=== PATIENT | male | born 1960 | race Caucasian/White ===

== ENCOUNTER 2016-09-09 19:20 | Inpatient (IN) | payer BC, OTHER ==
[~2016-09-09] VITALS: Ht 177.8 cm; Wt 121.7 kg
[2016-09-09 19:56] LABS: Basophils # (auto) 0 uL; Basophils % (auto) 0.4 % (0.0-2.0); Eosinophils # (auto) 0.2 uL; Eosinophils % (auto) 2.3 % (0.0-7.0); Hematocrit 43.5 % (41.0-53.0); Hemoglobin 14.9 g/dL (13.5-17.5); Lymphocytes # (auto) 3.5 uL; Lymphocytes % (auto) 35.7 % (10.0-50.0); Mean Corpuscular Hemoglobin 31.4 pg (28.0-32.0); Mean Corpuscular Hgb Conc. 34.3 g/dL (32.0-36.0); Mean Corpuscular Volume 91.7 fL (80.0-100.0); Mean Platelet Volume 7.7 fL (7.4-10.4); Monocytes # (auto) 0.9 uL; Monocytes % (auto) 9.2 % (0.0-12.0); Neutrophils # (auto) 5.1 uL; Neutrophils % (auto) 52.4 % (37.0-80.0); Platelet Count (auto) 235 10^3/uL (140-450); Red Cell Distribution Width 12.8 % (11.6-16.0); White Blood Cell 9.7 10^3/uL (4.4-10.8)
[2016-09-09 20:24] LABS: B-Type Natriuretic Peptide 4.86 pg/mL (0-100)
[2016-09-09 20:29] LABS: INR 1.03 (0.9-1.15); Partial Thromboplastin Time 25.7 sec (22.64-33.71); Prothrombin Time 10.6 sec (9.37-12.3); Temperature: 22.4 C (20.0-25.0)
[2016-09-09 20:42] LABS: Albumin 3.6 g/dL (3.4-5.0); Alkaline Phosphatase 94 U/L (45-117); Anion Gap 12 (5-15); Aspartate Aminotransferase 17 U/L (15-37); BUN/Creatinine Ratio 19.3; Bilirubin, Total 0.3 mg/dL (0.2-1.0); Blood Urea Nitrogen 16 mg/dL (7-18); Calcium 8.8 mg/dL (8.5-10.1); Carbon Dioxide 24 mmol/L (21-32); Chloride 110 mmol/L (98-107); GFR African American 124 mL/min; GFR Non-African American 102 mL/min; Glucose 118 mg/dL (74-106); Magnesium 2.2 mg/dL (1.6-2.6); Potassium 3.6 mmol/L (3.5-5.1); Sodium 146 mmol/L (136-145)
[2016-09-09] MEDS ORDERED: ONDANSETRON HCL 4 MG/2 ML VIAL ONE (21:45)
[2016-09-09] MEDS ORDERED: SODIUM CHLORIDE 0.9% 1,000 ML IV SCH (21:54)
[2016-09-09] MEDS ORDERED: LACTULOSE 20Gm/30ML SOLN PO PRN (22:00)
[2016-09-09] MEDS: ATORVASTATIN 20 MG TAB PO SCH (22:00)
[2016-09-09] MEDS ORDERED: METOPROLOL TARTRATE 25 MG TAB PO SCH (22:00)
[2016-09-09] MEDS ORDERED: ONDANSETRON HCL 4 MG/2 ML VIAL IV ONE (22:00)
[2016-09-09] MEDS ORDERED: MORPHINE SULF INJ 2 MG/ML SYRINGE 1ML IV ONE (22:00)
[2016-09-09] MEDS ORDERED: NITROGLYCERIN 0.4 MG SL TAB SL PRN (22:00)
[2016-09-09] MEDS ORDERED: MORPHINE SULF INJ 2 MG/ML SYRINGE 1ML IV PRN (22:00)
[2016-09-09] MEDS ORDERED: NITROGLYCERIN 0.2MG/HR TOPICAL PATCH TD ONE (22:15)
[2016-09-09 23:45] VITALS: BP 106/60
[2016-09-09 23:54] VITALS: BP 106/60
[2016-09-10 05:00] VITALS: BP 98/58
[2016-09-10] MEDS ORDERED: ENO40SY SC (06:28)
[2016-09-10] MEDS ORDERED: METO25TA5 PO (06:28)
[2016-09-10] MEDS ORDERED: ASPI-231 PO (06:28)
[2016-09-10] MEDS ORDERED: CLOP75TA28 PO (06:28)
[2016-09-10] MEDS ORDERED: NICO21DI24 TD (06:28)
[2016-09-10] MEDS ORDERED: LISI-646 PO (06:28)
[2016-09-10] MEDS ORDERED: ISO60SRT PO (06:28)
[2016-09-10] MEDS ORDERED: ATOR20TA PO (06:28)
[2016-09-10 06:50] LABS: Cholesterol 141 mg/dL (<200); HDL Cholesterol 33 mg/dL (40-59); LDL Cholesterol 89 mg/dL (<100); Triglycerides 201 mg/dL (<150)
[2016-09-10 09:00] VITALS: BP 93/52
[2016-09-10] MEDS: ISOSORBIDE MONONITRATE 60 MG TAB PO SCH (10:00)
[2016-09-10] MEDS: NITROGLYCERIN 0.2MG/HR TOPICAL PATCH TD SCH (10:00)
[2016-09-10] MEDS ORDERED: LISINOPRIL 20 MG TAB PO SCH (10:00)
[2016-09-10] MEDS ORDERED: ASPirin 81 mg TAB PO SCH (10:00)
[2016-09-10] MEDS: CLOPIDOGREL BISULFATE 75 MG TAB PO SCH (10:24)
[2016-09-10] MEDS: ENOXAPARIN SOD 40 MG/0.4 ML SYRINGE SC SCH (10:24)
[2016-09-10] MEDS: METOPROLOL TARTRATE 25 MG TAB PO SCH ×2 (10:25→21:14)
[2016-09-10] MEDS ORDERED: NICOTINE 14 MG/24HR TOPICAL PATCH TD ONE (12:15)
[2016-09-10 13:00] VITALS: BP 91/63
[2016-09-10 14:28] LABS: INR 1.06 (0.9-1.15); Partial Thromboplastin Time 26.8 sec (22.64-33.71); Prothrombin Time 10.9 sec (9.37-12.3)
[2016-09-10 14:33] LABS: Albumin 3.2 g/dL (3.4-5.0); BUN/Creatinine Ratio 16.3; Calcium 8.2 mg/dL (8.5-10.1); Potassium 3.8 mmol/L (3.5-5.1)
[2016-09-10 14:36] LABS: Bilirubin, Total 0.4 mg/dL (0.2-1.0); Total Protein 6.2 g/dL (6.4-8.2)
[2016-09-10 16:47] VITALS: BP 92/58
[2016-09-10] MEDS ORDERED: WARFARIN SODIUM 10 MG TAB PO ONE (17:00)
[2016-09-10] MEDS ORDERED: LORazepam 2MG/ML-1ML VIAL IV PRN (17:45)
[2016-09-10] MEDS: ATORVASTATIN 20 MG TAB PO SCH (21:14)
[2016-09-10 22:00] VITALS: BP 98/61
[2016-09-11 05:00] VITALS: BP 110/68
[2016-09-11 06:53] LABS: INR 1.08 (0.9-1.15); Partial Thromboplastin Time 27.3 sec (22.64-33.71); Prothrombin Time 11.1 sec (9.37-12.3)
[2016-09-11 07:10] LABS: Potassium 3.9 mmol/L (3.5-5.1)
[2016-09-11 07:14] LABS: Albumin 3.2 g/dL (3.4-5.0); BUN/Creatinine Ratio 16.1; Calcium 8.2 mg/dL (8.5-10.1)
[2016-09-11 07:18] LABS: Bilirubin, Total 0.3 mg/dL (0.2-1.0); Total Protein 6.5 g/dL (6.4-8.2)
[2016-09-11 07:29] VITALS: BP 105/69
[2016-09-11 08:00] VITALS: BP 105/69
[2016-09-11] MEDS ORDERED: LISINOPRIL 20 MG TAB PO SCH (10:00)
[2016-09-11] MEDS: NITROGLYCERIN 0.2MG/HR TOPICAL PATCH TD SCH (10:00)
[2016-09-11] MEDS ORDERED: NICOTINE 14 MG/24HR TOPICAL PATCH TD SCH (10:00)
[2016-09-11] MEDS: CLOPIDOGREL BISULFATE 75 MG TAB PO SCH (10:34)
[2016-09-11] MEDS: METOPROLOL TARTRATE 25 MG TAB PO SCH (10:35)
[2016-09-11] MEDS: ENOXAPARIN SOD 40 MG/0.4 ML SYRINGE SC SCH (10:39)
[2016-09-11] MEDS: ISOSORBIDE MONONITRATE 60 MG TAB PO SCH (10:39)
[2016-09-11] MEDS ORDERED: POM PO (11:41)
[2016-09-11 12:14] VITALS: BP 121/77
[2016-09-11 13:05] VITALS: BP 121/77
[2016-09-11] MEDS ORDERED: LEVO25TA6 PO (14:25)
[2016-09-11] MEDS ORDERED: WARFARIN SODIUM 10 MG TAB PO ONE (17:00)
[2016-09-11] MEDS ORDERED: RIVAROXABAN 20 MG TAB PO SCH (18:00)
== END 2016-09-11 15:46 | disposition home or self-care (01) | DRG 309 ==
LOC: EDBD 19:20 → ER 19:28 → TELE-WESTW 19:29 → TELE 19:29
PROVIDERS: ADMIT Family Medicine; ATTEND Internal Medicine
DX: I48.0 Paroxysmal atrial fibrillation (principal); E87.0 Hyperosmolality and hypernatremia; I25.110 Atherosclerotic heart disease of native coronary artery with unstable angina pectoris; D68.9 Coagulation defect, unspecified; E03.9 Hypothyroidism, unspecified; I10 Essential (primary) hypertension; E78.5 Hyperlipidemia, unspecified; E66.01 Morbid (severe) obesity due to excess calories; F17.210 Nicotine dependence, cigarettes, uncomplicated; Z79.899 Other long term (current) drug therapy; Z95.5 Presence of coronary angioplasty implant and graft; I25.2 Old myocardial infarction; Z82.49 Family history of ischemic heart disease and other diseases of the circulatory system; Z68.38 Body mass index [BMI] 38.0-38.9, adult; Z79.82 Long term (current) use of aspirin
CPT/HCPCS: 36415; 70450; 71010; 80053; 80061; 83735; 83880; 84439; 84443; 84481; 84484; 85025; 85610; 85730; 87081; 93005; 93306; 93886; 96367; 96375; J2405

== ENCOUNTER 2016-09-18 22:14 | Inpatient (IN) | payer BC ==
[~2016-09-18] VITALS: Ht 177.8 cm; Wt 122.8 kg
[~2016-09-18 22:14] MED LIST: ASPI-231 PO; ATOR20TA PO; CLOP75TA28 PO; ISO60SRT PO; LEVO25TA6 PO; LISI-646 PO; METO25TA5 PO; NICO21DI24 TD; POM PO
[2016-09-18] MEDS ORDERED: SODIUM CHLORIDE 0.9% 1,000 ML IVB ONE (22:20)
[2016-09-18] MEDS ORDERED: MORPHINE SULFATE 4 MG/ML SYRG IV ONE (22:30)
[2016-09-18] MEDS ORDERED: ONDANSETRON HCL 4 MG/2 ML VIAL IV ONE (22:30)
[2016-09-18 22:38] LABS: Basophils # (auto) 0.1 uL; Basophils % (auto) 0.6 % (0.0-2.0); Eosinophils # (auto) 0.2 uL; Eosinophils % (auto) 1.7 % (0.0-7.0); Hematocrit 40.7 % (41.0-53.0); Hemoglobin 14.4 g/dL (13.5-17.5); Lymphocytes # (auto) 3.6 uL; Lymphocytes % (auto) 35.6 % (10.0-50.0); Mean Corpuscular Hemoglobin 32.1 pg (28.0-32.0); Mean Corpuscular Hgb Conc. 35.3 g/dL (32.0-36.0); Mean Corpuscular Volume 90.8 fL (80.0-100.0); Mean Platelet Volume 7.8 fL (7.4-10.4); Monocytes # (auto) 0.8 uL; Monocytes % (auto) 7.4 % (0.0-12.0); Neutrophils # (auto) 5.6 uL; Neutrophils % (auto) 54.7 % (37.0-80.0); Platelet Count (auto) 215 10^3/uL (140-450); Red Cell Distribution Width 12.9 % (11.6-16.0); White Blood Cell 10.2 10^3/uL (4.4-10.8)
[2016-09-18 22:56] LABS: Albumin 3.4 g/dL (3.4-5.0); Anion Gap 11 (5-15); Aspartate Aminotransferase 14 U/L (15-37); BUN/Creatinine Ratio 17.1; Blood Urea Nitrogen 14 mg/dL (7-18); Calcium 8.2 mg/dL (8.5-10.1); Carbon Dioxide 24 mmol/L (21-32); Chloride 108 mmol/L (98-107); GFR African American 125 mL/min; GFR Non-African American 104 mL/min; Glucose 145 mg/dL (74-106); Potassium 3.8 mmol/L (3.5-5.1); Sodium 143 mmol/L (136-145)
[2016-09-18 22:58] LABS: INR 1.02 (0.9-1.15); Partial Thromboplastin Time 28.5 sec (22.64-33.71); Prothrombin Time 10.5 sec (9.37-12.3)
[2016-09-18 23:01] LABS: Alkaline Phosphatase 104 U/L (45-117); Bilirubin, Total 0.2 mg/dL (0.2-1.0); Total Protein 6.7 g/dL (6.4-8.2)
[2016-09-18 23:02] LABS: B-Type Natriuretic Peptide 8.29 pg/mL (0-100)
[2016-09-19] MEDS ORDERED: MORPHINE SULF INJ 2 MG/ML SYRINGE 1ML IV PRN (02:00)
[2016-09-19] MEDS ORDERED: HYDROcodone-ACET 5/325MG TAB PO PRN (02:00)
[2016-09-19] MEDS ORDERED: NITROGLYCERIN 0.4 MG SL TAB SL PRN (02:00)
[2016-09-19] MEDS ORDERED: ACETAMINOPHEN 325 MG TAB PO PRN (02:00)
[2016-09-19] MEDS ORDERED: TEMAZEPAM 15 MG CAP PO PRN (02:00)
[2016-09-19] MEDS ORDERED: ONDANSETRON HCL 4 MG/2 ML VIAL IV PRN (02:00)
[2016-09-19 02:47] VITALS: BP 95/59
[2016-09-19 05:00] VITALS: BP 103/64
[2016-09-19] MEDS ORDERED: LEVOTHYROXINE SODIUM 50 MCG TAB PO SCH (07:00)
[2016-09-19 08:00] VITALS: BP 97/54
[2016-09-19] MEDS ORDERED: NICOTINE 21MG/24 HR TOPICAL PATCH TD SCH (10:00)
[2016-09-19] MEDS ORDERED: LISINOPRIL 20 MG TAB PO SCH (10:00)
[2016-09-19] MEDS ORDERED: ISOSORBIDE MONONITRATE 60 MG TAB PO SCH (10:00)
[2016-09-19] MEDS ORDERED: FAMOTIDINE 20 MG TAB PO SCH (10:00)
[2016-09-19] MEDS ORDERED: METOPROLOL TARTRATE 25 MG TAB PO SCH (10:00)
[2016-09-19] MEDS ORDERED: ASPirin 81 mg TAB PO SCH (10:00)
[2016-09-19] MEDS ORDERED: ENOXAPARIN SOD 40 MG/0.4 ML SYRINGE SC SCH (10:00)
[2016-09-19] MEDS ORDERED: CLOPIDOGREL BISULFATE 75 MG TAB PO SCH (10:00)
[2016-09-19 13:00] VITALS: BP 101/66
== END 2016-09-19 14:00 | disposition left against medical advice (07) | DRG 313 ==
LOC: EDBD 22:14 → ER 22:20 → TELE 22:21 → TELE-WESTW 09-19 02:48
PROVIDERS: ADMIT Internal Medicine; ATTEND Internal Medicine
DX: R07.9 Chest pain, unspecified (principal); E78.5 Hyperlipidemia, unspecified; E03.9 Hypothyroidism, unspecified; E66.01 Morbid (severe) obesity due to excess calories; I10 Essential (primary) hypertension; F17.210 Nicotine dependence, cigarettes, uncomplicated; I48.2 Chronic atrial fibrillation; Z82.49 Family history of ischemic heart disease and other diseases of the circulatory system; Z98.61 Coronary angioplasty status; Z68.38 Body mass index [BMI] 38.0-38.9, adult
CPT/HCPCS: 36415; 71010; 80053; 83735; 83880; 84443; 84484; 85025; 85379; 85610; 85730; 87081; 93005; 94761; 96361; 96374; 96375; J2405

== ENCOUNTER 2017-04-17 06:09 | Day surgery (SDC) | payer BC ==
[2017-04-16 16:05] LABS: Basophils # (auto) 0 uL; Basophils % (auto) 0.5 % (0.0-2.0); Eosinophils # (auto) 0.2 uL; Eosinophils % (auto) 2.9 % (0.0-7.0); Hematocrit 42.4 % (41.0-53.0); Hemoglobin 14.8 g/dL (13.5-17.5); Lymphocytes # (auto) 3.5 uL; Mean Corpuscular Hemoglobin 32.1 pg (28.0-32.0); Mean Corpuscular Hgb Conc. 34.9 g/dL (32.0-36.0); Mean Corpuscular Volume 92.1 fL (80.0-100.0); Monocytes # (auto) 0.6 uL; Monocytes % (auto) 8.5 % (0.0-12.0); Neutrophils # (auto) 3.2 uL; Neutrophils % (auto) 42.1 % (37.0-80.0); Nucleated Red Blood Cells % 0.1 %; Platelet Count (auto) 192 10^3/uL (140-450); Red Cell Distribution Width 13.2 % (11.8-14.3); White Blood Cell 7.6 10^3/uL (4.4-10.8)
[2017-04-16 16:11] LABS: Albumin 3.6 g/dL (3.4-5.0); BUN/Creatinine Ratio 23.8; Calcium 9.1 mg/dL (8.5-10.1)
[2017-04-16 16:15] LABS: Bilirubin, Total 0.3 mg/dL (0.2-1.0); Total Protein 7.2 g/dL (6.4-8.2)
[2017-04-16 16:18] LABS: Prothrombin Time 10.9 sec (9.37-12.3)
[~2017-04-17] VITALS: Ht 177.8 cm; Wt 117.0 kg
[~2017-04-17 06:09] MED LIST changes: -ASPI-231 PO; +ASPI81TA27 PO; +HYDR-531 PO; -ISO60SRT PO; -LEVO25TA6 PO; -NICO21DI24 TD; +OMEGCAP28 OR
[2017-04-17] MEDS ORDERED: ceFAZolin 1GM/50ML D5W 50 ML IV ONE (06:27)
[2017-04-17] MEDS ORDERED: LIDOCAINE W/ EPINEPHRINE 1 % INJ 30ML ONE (06:56)
[2017-04-17] MEDS ORDERED: BUPIVACAINE W/ EPINEPH 0.25% INJ 50ML MDV ONE (06:56)
[2017-04-17] MEDS ORDERED: LIDOCAINE 1% HCL (LOCAL ANESTH.) INJ 20ML MDV ONE (06:56)
[2017-04-17] MEDS ORDERED: BUPIVACAINE 0.25% INJ 50ML VIAL ONE (06:56)
[2017-04-17] MEDS ORDERED: fentaNYL CITRATE 100 MCG/2 ML VL ONE (07:27)
[2017-04-17] MEDS ORDERED: MIDAZOLAM HCL 1MG/1ML-2 ML VIAL ONE (07:28)
[2017-04-17] MEDS ORDERED: PROPOFOL 10 MG/ML 20 ML IV ONE (07:31)
[2017-04-17] MEDS ORDERED: ceFAZolin 1GM VL ONE (07:46)
[2017-04-17] MEDS ORDERED: MORPHINE SULF(PF) 0.5MG/ML 10ML VIAL ONE (07:49)
[2017-04-17] MEDS ORDERED: ONDANSETRON HCL 4 MG/2 ML VIAL ONE (08:09)
[2017-04-17] MEDS ORDERED: METOCLOPRAMIDE HCL 5MG/ml INJ 2ml VIAL ONE (08:09)
[2017-04-17] MEDS ORDERED: KETOROLAC TROMETH 30 MG/ML 1ML VIAL ONE (08:09)
[2017-04-17] MEDS ORDERED: fentaNYL CITRATE 100 MCG/2 ML VL IV PRN (08:15)
[2017-04-17] MEDS ORDERED: hydrALAZINE HCL 20 MG/ML VL IV PRN (08:15)
[2017-04-17] MEDS ORDERED: ONDANSETRON HCL 4 MG/2 ML VIAL IV ONE (08:15)
[2017-04-17] MEDS: HYDROmorphone HCL 2 MG/ML VL IV PRN ×4 (08:40→09:13)
[2017-04-17 09:32] VITALS: BP 106/60
== END 2017-04-17 09:50 | disposition home or self-care (01) ==
LOC: SUR 06:09
PROVIDERS: ATTEND Orthopaedic Surgery
DX: M23.221 Derangement of posterior horn of medial meniscus due to old tear or injury, right knee (principal); X58.XXXA Exposure to other specified factors, initial encounter; Y93.89 Activity, other specified; Y92.89 Other specified places as the place of occurrence of the external cause; Y99.8 Other external cause status; M94.261 Chondromalacia, right knee; I20.9 Angina pectoris, unspecified; I25.10 Atherosclerotic heart disease of native coronary artery without angina pectoris; J43.9 Emphysema, unspecified; E66.9 Obesity, unspecified; F32.9 Major depressive disorder, single episode, unspecified; F17.210 Nicotine dependence, cigarettes, uncomplicated
CPT/HCPCS: 29881; 36415; 80053; 85025; 85610; 85730; J0690; J1170; J1885; J2250; J2270; J2405; J2704; J2765; J3010; J2001; J3490

== ENCOUNTER → 2019-11-25 | Day surgery (SDC) | payer BC ==
[2019-11-20 10:17] LABS: Urine Bacteria FEW /hpf (None Seen); Urine Blood TRACE /uL (Negative); Urine Mucus FEW (None Seen); Urine Specific Gravity 1.018 (1.001-1.035); Urine WBC 1 /hpf (0 - 3)
[2019-11-20 10:18] LABS: Basophils # (auto) 0 10 ^3/uL (0-0.2); Basophils % (auto) 0.5 % (0.0-2.0); Eosinophils # (auto) 0.3 10 ^3/uL (0-0.8); Eosinophils % (auto) 2.8 % (0.0-7.0); Hematocrit 47.6 % (41.0-53.0); Hemoglobin 16.3 g/dL (13.5-17.5); Lymphocytes # (auto) 3.6 10 ^3/uL (0.4-5.4); Lymphocytes % (auto) 38.7 % (10.0-50.0); Mean Corpuscular Hemoglobin 31.9 pg (28.0-32.0); Mean Corpuscular Hgb Conc. 34.2 g/dL (32.0-36.0); Mean Corpuscular Volume 93.2 fL (80.0-100.0); Monocytes # (auto) 0.8 10 ^3/uL (0-1.3); Monocytes % (auto) 8.2 % (0.0-12.0); Neutrophils # (auto) 4.7 10 ^3/uL (1.6-8.6); Neutrophils % (auto) 49.8 % (37.0-80.0); Nucleated Red Blood Cells % 0.1 %; Platelet Count (auto) 223 10^3/uL (140-450); Red Blood Cells 5.11 10^6/uL (4.5-5.90); Red Cell Distribution Width 13.4 % (11.8-14.3); White Blood Cell 9.4 10^3/uL (4.4-10.8)
[2019-11-20 10:25] LABS: Albumin 3.6 g/dL (3.4-5.0); Calcium 8.9 mg/dL (8.5-10.1); Potassium 4.2 mmol/L (3.5-5.1)
[2019-11-20 10:27] LABS: BUN/Creatinine Ratio 14.1; Bilirubin, Total 0.5 mg/dL (0.2-1.0); Total Protein 7.6 g/dL (6.4-8.2)
[2019-11-20 10:36] LABS: INR 1.01 (0.9-1.15); Partial Thromboplastin Time 26.7 sec (23.64-32.05)
[~2019-11-25] VITALS: Ht 177.8 cm; Wt 122.5 kg
[~2019-11-25] MED LIST changes: +ASPI-404 PO; -ASPI81TA27 PO; -ATOR20TA PO; +BACITRACIN INJ 50000 UNIT VIAL ONE; +BUPIVACAINE 0.25% INJ 50ML VIAL ONE; +BUPIVACAINE W/ EPINEPH 0.25% INJ 50ML MDV ONE; +DOCU-94 PO; +GLYCOPYRROLATE 0.2 MG/ML 1ML VIAL ONE; +HEPARIN SODIUM (PORCINE) 5000 UNITS/ML 1ML VIAL ONE; +HYDR-4833 GT; -HYDR-531 PO; +HYDROmorphone HCL 2 MG/ML VL IV PRN; +LIDOCAINE W/ EPINEPHRINE 1% 20ML VIAL ONE; +MEPERIDINE HCL (25 MG/ML) 1ML VIAL ONE; +METOCLOPRAMIDE HCL 5MG/ml INJ 2ml VIAL IV PRN; +MIDAZOLAM HCL 1MG/1ML-2 ML VIAL ONE; +MORPHINE SULFATE 4 MG/ML SYR/VIAL IV PRN; +NEOSTIGMINE 1 MG/ML INJ (10mg/10ML VIAL) IV ONE; +NEOSTIGMINE 1 MG/ML INJ (10mg/10ML VIAL) ONE; -OMEGCAP28 OR; +ONDANSETRON HCL 4 MG/2 ML VIAL ONE; -POM PO; +PROPOFOL 10 MG/ML 20 ML IV ONE; +ROCURONIUM 10MG/ML 10ML VIAL IV ONE; +SODIUM CHLORIDE LOCK 10 ML ONE; +[UNRECOGNIZED DRUG - CODE] PO; +ceFAZolin 1 GM/50ml D5W BAG /AE IV ONE; +ceFAZolin 1GM/50ML 100 ML IV ONE; +fentaNYL CITRATE 100 MCG/2 ML VL IV PRN; +fentaNYL CITRATE 100 MCG/2 ML VL ONE
[2019-11-25 09:22] VITALS: BP 120/64
== END | disposition home or self-care (01) ==
LOC: SUR 05:58
PROVIDERS: ATTEND Surgery
DX: K42.9 Umbilical hernia without obstruction or gangrene (principal); I11.9 Hypertensive heart disease without heart failure; I25.2 Old myocardial infarction; I25.10 Atherosclerotic heart disease of native coronary artery without angina pectoris; I48.0 Paroxysmal atrial fibrillation; E78.00 Pure hypercholesterolemia, unspecified; E78.5 Hyperlipidemia, unspecified; N40.1 Benign prostatic hyperplasia with lower urinary tract symptoms; M17.11 Unilateral primary osteoarthritis, right knee; F17.210 Nicotine dependence, cigarettes, uncomplicated; E66.9 Obesity, unspecified; Z68.39 Body mass index [BMI] 39.0-39.9, adult; Z95.5 Presence of coronary angioplasty implant and graft; Z98.890 Other specified postprocedural states; Z79.01 Long term (current) use of anticoagulants; Z79.899 Other long term (current) drug therapy
CPT/HCPCS: 36415; 49585; 80053; 81001; 85025; 85610; 85730; J0690; J1644; J2175; J2250; J2405; J2704; J3010; J3490

== ENCOUNTER 2022-04-23 11:14 | Inpatient (IN) | payer BC ==
[2022-04-23] VITALS (7 sets, daily range): BP systolic 120–137; BP diastolic 50–76
[~2022-04-23] VITALS: Ht 177.8 cm; Wt 120.9 kg
[~2022-04-23 11:14] MED LIST changes: -ASPI-404 PO; +ASPI-543 PO; -BACITRACIN INJ 50000 UNIT VIAL ONE; -BUPIVACAINE 0.25% INJ 50ML VIAL ONE; -BUPIVACAINE W/ EPINEPH 0.25% INJ 50ML MDV ONE; -GLYCOPYRROLATE 0.2 MG/ML 1ML VIAL ONE; -HEPARIN SODIUM (PORCINE) 5000 UNITS/ML 1ML VIAL ONE; -HYDROmorphone HCL 2 MG/ML VL IV PRN; -LIDOCAINE W/ EPINEPHRINE 1% 20ML VIAL ONE; -LISI-646 PO; +LISI20TA28 PO; -MEPERIDINE HCL (25 MG/ML) 1ML VIAL ONE; -METOCLOPRAMIDE HCL 5MG/ml INJ 2ml VIAL IV PRN; -MIDAZOLAM HCL 1MG/1ML-2 ML VIAL ONE; -MORPHINE SULFATE 4 MG/ML SYR/VIAL IV PRN; -NEOSTIGMINE 1 MG/ML INJ (10mg/10ML VIAL) IV ONE; -NEOSTIGMINE 1 MG/ML INJ (10mg/10ML VIAL) ONE; -ONDANSETRON HCL 4 MG/2 ML VIAL ONE; -PROPOFOL 10 MG/ML 20 ML IV ONE; -ROCURONIUM 10MG/ML 10ML VIAL IV ONE; -SODIUM CHLORIDE LOCK 10 ML ONE; -ceFAZolin 1 GM/50ml D5W BAG /AE IV ONE; -ceFAZolin 1GM/50ML 100 ML IV ONE; -fentaNYL CITRATE 100 MCG/2 ML VL IV PRN; -fentaNYL CITRATE 100 MCG/2 ML VL ONE
[2022-04-23 12:18] LABS: Basophils # (auto) 0 10 ^3/uL (0-0.2); Basophils % (auto) 0.4 % (0.0-2.0); Eosinophils # (auto) 0.1 10 ^3/uL (0-0.8); Eosinophils % (auto) 1.5 % (0.0-7.0); Hemoglobin 14.4 g/dL (13.5-17.5); Lymphocytes # (auto) 2.6 10 ^3/uL (0.4-5.4); Lymphocytes % (auto) 32.2 % (10.0-50.0); Mean Corpuscular Hemoglobin 31.5 pg (28.0-32.0); Mean Corpuscular Hgb Conc. 34.4 g/dL (32.0-36.0); Mean Corpuscular Volume 91.5 fL (80.0-100.0); Monocytes # (auto) 0.8 10 ^3/uL (0-1.3); Neutrophils # (auto) 4.6 10 ^3/uL (1.6-8.6); Neutrophils % (auto) 55.9 % (37.0-80.0); Red Blood Cells 4.59 10^6/uL (4.5-5.90); White Blood Cell 8.2 10^3/uL (4.4-10.8)
[2022-04-23 12:31] LABS: Calcium 8.7 mg/dL (8.5-10.1)
[2022-04-23 12:37] LABS: Albumin 3.4 g/dL (3.4-5.0); BUN/Creatinine Ratio 18.8; Bilirubin, Total 0.4 mg/dL (0.2-1.0); Total Protein 6.8 g/dL (6.4-8.2)
[2022-04-23] MEDS ORDERED: HEPARIN SODIUM (PORCINE) 5000 UNITS/ML 1ML VIAL ONE (12:37)
[2022-04-23] MEDS ORDERED: HEPARIN SODIUM (PORCINE) 5000 UNITS/ML 1ML VIAL IV ONE (12:45)
[2022-04-23] MEDS ORDERED: NITROGLYCERIN 0.4 MG SL TAB SL PRN ×2 (13:00→14:30)
[2022-04-23] MEDS ORDERED: DEXTROSE (50%) 50ML SYRG IV PRN (13:00)
[2022-04-23] MEDS ORDERED: MORPHINE SULFATE INJ 2 MG/ml SYRG IV PRN ×2 (13:00→14:30)
[2022-04-23] MEDS ORDERED: fentaNYL CITRATE 100 MCG/2 ML VL ONE (13:02)
[2022-04-23] MEDS ORDERED: ANGIOMAX 250 MG VIAL IV ONE (13:02)
[2022-04-23] MEDS ORDERED: VERAPAMIL 2.5MG/ML INJ 2ML VIAL IV ONE (13:02)
[2022-04-23] MEDS ORDERED: MIDAZOLAM HCL 2MG/2ML 2ml VIAL (1mg/ml) ONE ×2 (13:03→14:12)
[2022-04-23] MEDS ORDERED: SODIUM CHL 0.9% 0 ML ONE (13:03)
[2022-04-23] MEDS ORDERED: IODIXANOL 320MG/ML 100ML BTL IV ONE ×2 (13:07→14:07)
[2022-04-23] MEDS ORDERED: LIDOCAINE 2%HCL (LOCAL ANESTH.) INJ 20ML MDV ONE (13:08)
[2022-04-23 13:28] LABS: Magnesium 1.8 mg/dL (1.6-2.6)
[2022-04-23 13:32] LABS: Cholesterol 198 mg/dL (< 200); HDL Cholesterol 32 mg/dL (40-59); Triglycerides 436 mg/dL (< 150)
[2022-04-23 13:42] LABS: INR 1.1 (0.9-1.15); Partial Thromboplastin Time 32.2 sec (24.6-33.4)
[2022-04-23] MEDS ORDERED: ATROPINE SULF 1 MG/10ml SYR ONE (13:51)
[2022-04-23] MEDS ORDERED: HYDROmorphone HCL 2 MG/ML VL/or syr ONE (14:06)
[2022-04-23] MEDS ORDERED: ALPRAZolam 0.25 MG TAB PO PRN (14:45)
[2022-04-23] MEDS: InsuLIN REG 1unit/0.01ml Soln (100units/ml) SC SCH (17:00)
[2022-04-23] MEDS: ACCU-CHEK COMFORT CURVE STRIP VI SCH ×2 (17:00→22:00)
[2022-04-23] MEDS ORDERED: InsuLIN REG 1unit/0.01ml Soln (100units/ml) SC SCH (22:00)
[2022-04-24 01:02] VITALS: BP 137/73
[2022-04-24 04:01] VITALS: BP 123/67
[2022-04-24] MEDS: InsuLIN REG 1unit/0.01ml Soln (100units/ml) SC SCH (06:13)
[2022-04-24 07:00] VITALS: BP 128/70
[2022-04-24] MEDS: ACCU-CHEK COMFORT CURVE STRIP VI SCH (07:00)
[2022-04-24 08:00] VITALS: BP 122/68
[2022-04-24] MEDS ORDERED: NICOTINE 14 MG/24HR TOPICAL PATCH TD SCH (10:00)
[2022-04-24] MEDS ORDERED: ASPirin 81 mg TAB PO SCH ×2 (10:00)
[2022-04-24] MEDS ORDERED: CLOPIDOGREL BISULFATE 75 MG TAB PO SCH (10:00)
[2022-04-24] MEDS ORDERED: ATO40T PO (12:01)
[2022-04-24] MEDS ORDERED: CLOP75TA70 PO (12:01)
[2022-04-24] MEDS ORDERED: RIV20T PO (12:01)
[2022-04-24 12:27] VITALS: BP 128/68
[2022-04-24 12:43] VITALS: BP 128/68
[2022-04-24] MEDS ORDERED: RIVAROXABAN 20 MG TAB PO SCH (18:00)
== END 2022-04-24 14:35 | disposition home or self-care (01) | DRG 247 ==
LOC: ER 11:14 → EDBD 11:14 → OVERFLOW 14:17 → DOU IN ICU 16:15
PROVIDERS: ADMIT Internal Medicine; ATTEND Internal Medicine
PROC: 027034Z Dilation of Coronary Artery, One Artery with Drug-eluting Intraluminal Device, Percutaneous Approach (ICD-10-PCS; principal; 2022-04-23)
PROC: 4A023N7 Measurement of Cardiac Sampling and Pressure, Left Heart, Percutaneous Approach (ICD-10-PCS; 2022-04-23)
PROC: B211YZZ Fluoroscopy of Multiple Coronary Arteries using Other Contrast (ICD-10-PCS; 2022-04-23)
PROC: B213YZZ Fluoroscopy of Multiple Coronary Artery Bypass Grafts using Other Contrast (ICD-10-PCS; 2022-04-23)
PROC: B218YZZ Fluoroscopy of Left Internal Mammary Bypass Graft using Other Contrast (ICD-10-PCS; 2022-04-23)
PROC: B215YZZ Fluoroscopy of Left Heart using Other Contrast (ICD-10-PCS; 2022-04-23)
DX: I21.3 ST elevation (STEMI) myocardial infarction of unspecified site (principal); I25.810 Atherosclerosis of coronary artery bypass graft(s) without angina pectoris; I50.32 Chronic diastolic (congestive) heart failure; I48.0 Paroxysmal atrial fibrillation; I11.0 Hypertensive heart disease with heart failure; E78.5 Hyperlipidemia, unspecified; R55 Syncope and collapse; S40.011A Contusion of right shoulder, initial encounter; E11.9 Type 2 diabetes mellitus without complications; R00.1 Bradycardia, unspecified; Z20.822 Contact with and (suspected) exposure to COVID-19; E66.9 Obesity, unspecified; W18.39XA Other fall on same level, initial encounter; F17.210 Nicotine dependence, cigarettes, uncomplicated; Z68.38 Body mass index [BMI] 38.0-38.9, adult; Z79.02 Long term (current) use of antithrombotics/antiplatelets; Z79.01 Long term (current) use of anticoagulants; Z79.82 Long term (current) use of aspirin; Z79.899 Other long term (current) drug therapy; Z98.61 Coronary angioplasty status; Z95.1 Presence of aortocoronary bypass graft; Y93.89 Activity, other specified; Y92.89 Other specified places as the place of occurrence of the external cause; Y99.8 Other external cause status
CPT/HCPCS: 36415; 71045; 80053; 80061; 82565; 82962; 83036; 83735; 83880; 84443; 84484; 85025; 85610; 85730; 86850; 86900; 86901; 87081; 93005; 93306; 96372; 99152; 99153; C1874; C1887; G0378; J2250; Q9967

== ENCOUNTER 2022-08-14 10:50 | Inpatient (IN) | payer BC ==
[~2022-08-14] VITALS: Ht 177.8 cm; Wt 115.0 kg
[~2022-08-14 10:50] MED LIST changes: +ATO40T PO; +CLOP75TA70 PO; +RIV20T PO
[2022-08-14] MEDS ORDERED: ONDANSETRON HCL 4 MG/2 ML VIAL IV ONE (11:45)
[2022-08-14 11:51] LABS: Basophils # (auto) 0 10 ^3/uL (0-0.2); Basophils % (auto) 0.6 % (0.0-2.0); Eosinophils # (auto) 0.1 10 ^3/uL (0-0.8); Eosinophils % (auto) 1.4 % (0.0-7.0); Hematocrit 37.9 % (41.0-53.0); Hemoglobin 12.6 g/dL (13.5-17.5); Lymphocytes # (auto) 1.3 10 ^3/uL (0.4-5.4); Lymphocytes % (auto) 21.1 % (10.0-50.0); Mean Corpuscular Hemoglobin 30.7 pg (28.0-32.0); Mean Corpuscular Hgb Conc. 33.2 g/dL (32.0-36.0); Mean Corpuscular Volume 92.4 fL (80.0-100.0); Monocytes # (auto) 0.3 10 ^3/uL (0-1.3); Monocytes % (auto) 4.1 % (0.0-12.0); Neutrophils # (auto) 4.5 10 ^3/uL (1.6-8.6); Neutrophils % (auto) 72.8 % (37.0-80.0); Nucleated Red Blood Cells % 0.3 %; Red Cell Distribution Width 13.6 % (11.8-14.3); White Blood Cell 6.2 10^3/uL (4.4-10.8)
[2022-08-14 12:39] LABS: Albumin 2.3 g/dL (3.4-5.0); Calcium 8.5 mg/dL (8.5-10.1); Magnesium 2.6 mg/dL (1.6-2.6); Potassium 3.8 mmol/L (3.5-5.1)
[2022-08-14 12:48] LABS: Bilirubin, Total 0.8 mg/dL (0.2-1.0); Lactic Acid w/Reflex 2.6 mmol/L (0.4-2.0); Total Protein 5.9 g/dL (6.4-8.2)
[2022-08-14 12:54] LABS: Urine Bacteria NONE SEEN /hpf (None Seen); Urine Blood Negative /uL (Negative); Urine Specific Gravity 1.031 (1.001-1.035); Urine WBC <1 /hpf (0 - 3)
[2022-08-14] MEDS ORDERED: ACETAMINOPHEN 325 MG TAB PO PRN (14:45)
[2022-08-14] MEDS ORDERED: MORPHINE SULFATE INJ 2 MG/ml SYRG IV PRN (14:45)
[2022-08-14] MEDS ORDERED: NITROGLYCERIN 0.4 MG SL TAB SL PRN (14:45)
[2022-08-14] MEDS ORDERED: ATO40T PO (15:00)
[2022-08-14] MEDS ORDERED: CLOP75TA28 PO (15:00)
[2022-08-14] MEDS ORDERED: ASPI-543 PO (15:00)
[2022-08-14] MEDS ORDERED: LISI20TA28 PO (15:00)
[2022-08-14] MEDS ORDERED: METO25TA5 PO (15:00)
[2022-08-14] MEDS ORDERED: DOCU-94 PO (15:00)
[2022-08-14] MEDS ORDERED: RIV20T PO (15:00)
[2022-08-14] MEDS ORDERED: CLOP75TA70 PO (15:00)
[2022-08-14] MEDS ORDERED: cefTRIAXone 1GM/50ML D5W 50 ML IV ONE (15:15)
[2022-08-14 17:39] VITALS: BP 129/82
[2022-08-14] MEDS: ALBUTEROL SULF 2.5 MG/0.5ML(0.5%) NEB SOLN NEB SCH (18:00)
[2022-08-14] MEDS ORDERED: ALBUTEROL MEDNEB 2.5 mg/3ml NEB ONE (18:46)
[2022-08-15] MEDS: ALBUTEROL SULF 2.5 MG/0.5ML(0.5%) NEB SOLN NEB SCH ×4 (00:29→18:43)
[2022-08-15] MEDS: methylPREDNISolone SOD SUCC 40 MG/ML VL IV SCH ×2 (00:47→10:30)
[2022-08-15] MEDS: FUROSEMIDE 20 MG/2 ML VIAL IV SCH ×2 (00:48→10:29)
[2022-08-15 07:09] LABS: Hematocrit 36.8 % (41.0-53.0); Hemoglobin 12.5 g/dL (13.5-17.5); Mean Corpuscular Hemoglobin 31.2 pg (28.0-32.0); Mean Corpuscular Volume 91.7 fL (80.0-100.0); Red Blood Cells 4.01 10^6/uL (4.5-5.90); Red Cell Distribution Width 13.8 % (11.8-14.3); White Blood Cell 5.4 10^3/uL (4.4-10.8)
[2022-08-15 07:21] LABS: Albumin 2.5 g/dL (3.4-5.0); Potassium 3.7 mmol/L (3.5-5.1)
[2022-08-15 07:25] LABS: BUN/Creatinine Ratio 27.2; Bilirubin, Total 0.6 mg/dL (0.2-1.0); Total Protein 5.9 g/dL (6.4-8.2)
[2022-08-15 07:33] LABS: Basophils % (manual) 0 (0.0-2.0); Blast Cells 0; Eosinophils % (manual) 0 (0-7); Myelocytes % 0; Promyelocytes % 0; Reactive Lymphocytes 0
[2022-08-15 08:32] LABS: Band Neutrophils % (manual) 3; Lymphocytes % (manual) 18 (10.0-50.0); Metamyelocytes % 2; Monocytes % (manual) 4 (0-12)
[2022-08-15] MEDS: cefTRIAXone 1GM/50ML D5W 50 ML IV SCH (08:56)
[2022-08-15] MEDS: levoFLOXacin 500MG 100 ML IV SCH (10:30)
[2022-08-15] MEDS ORDERED: ALBUTEROL MEDNEB 2.5 mg/3ml NEB ONE (18:41)
[2022-08-15] MEDS ORDERED: DEXTROSE (50%) 50ML SYRG IV PRN (22:15)
[2022-08-15] MEDS ORDERED: InsuLIN REG 1unit/0.01ml Soln (100units/ml) SC SCH (22:30)
[2022-08-16] VITALS (7 sets, daily range): BP systolic 99–146; BP diastolic 52–71
[2022-08-16] MEDS ORDERED: APIX5TAB PO (01:36)
[2022-08-16] MEDS ORDERED: RIVA10TA2 PO (01:36)
[2022-08-16] MEDS ORDERED: FUR20T PO (01:36)
[2022-08-16] MEDS ORDERED: METF-372 PO (01:36)
[2022-08-16] MEDS ORDERED: ATOR-47 PO (01:36)
[2022-08-16] MEDS ORDERED: AMIO200T4 PO (01:36)
[2022-08-16] MEDS ORDERED: EMPA1TAB PO (01:36)
[2022-08-16] MEDS ORDERED: AMLO-489 PO (01:37)
[2022-08-16] MEDS: InsuLIN REG 1unit/0.01ml Soln (100units/ml) SC SCH ×6 (02:07→21:46)
[2022-08-16] MEDS: ACCU-CHEK COMFORT CURVE STRIP VI SCH ×5 (02:07→21:46)
[2022-08-16] MEDS ORDERED: InsuLIN REG 1unit/0.01ml Soln (100units/ml) SC SCH ×4 (04:00→22:00)
[2022-08-16] MEDS ORDERED: ACCU-CHEK COMFORT CURVE STRIP VI SCH ×2 (04:00→07:00)
[2022-08-16] MEDS ORDERED: ALBUTEROL MEDNEB 2.5 mg/3ml NEB ONE ×4 (05:45→23:48)
[2022-08-16] MEDS: ALBUTEROL SULF 2.5 MG/0.5ML(0.5%) NEB SOLN NEB SCH ×5 (06:41→23:50)
[2022-08-16] MEDS: cefTRIAXone 1GM/50ML D5W 50 ML IV SCH (08:29)
[2022-08-16] MEDS: methylPREDNISolone SOD SUCC 40 MG/ML VL IV SCH (08:30)
[2022-08-16] MEDS: FUROSEMIDE 20 MG/2 ML VIAL IV SCH (08:30)
[2022-08-16] MEDS: levoFLOXacin 500MG 100 ML IV SCH (09:49)
[2022-08-17] MEDS: InsuLIN REG 1unit/0.01ml Soln (100units/ml) SC SCH ×7 (00:31→23:54)
[2022-08-17] MEDS: ACCU-CHEK COMFORT CURVE STRIP VI SCH ×7 (00:31→23:54)
[2022-08-17 05:00] VITALS: BP 118/42
[2022-08-17] MEDS ORDERED: ALBUTEROL MEDNEB 2.5 mg/3ml NEB ONE ×4 (06:06→23:39)
[2022-08-17] MEDS: ALBUTEROL SULF 2.5 MG/0.5ML(0.5%) NEB SOLN NEB SCH ×4 (06:17→23:52)
[2022-08-17] MEDS: cefTRIAXone 1GM/50ML D5W 50 ML IV SCH (08:13)
[2022-08-17] MEDS: FUROSEMIDE 20 MG/2 ML VIAL IV SCH (08:14)
[2022-08-17] MEDS: levoFLOXacin 500MG 100 ML IV SCH (08:14)
[2022-08-17 09:00] VITALS: BP 139/67
[2022-08-17 13:00] VITALS: BP 129/65
[2022-08-17 16:05] VITALS: BP 129/59
[2022-08-17 17:07] VITALS: BP 129/59
[2022-08-17 22:00] VITALS: BP 127/43
[2022-08-18] MEDS: ACCU-CHEK COMFORT CURVE STRIP VI SCH ×3 (04:42→12:00)
[2022-08-18] MEDS: InsuLIN REG 1unit/0.01ml Soln (100units/ml) SC SCH ×3 (04:43→12:00)
[2022-08-18 05:00] VITALS: BP 119/83
[2022-08-18] MEDS ORDERED: ALBUTEROL MEDNEB 2.5 mg/3ml NEB ONE (06:02)
[2022-08-18] MEDS: ALBUTEROL SULF 2.5 MG/0.5ML(0.5%) NEB SOLN NEB SCH (06:14)
[2022-08-18] MEDS: cefTRIAXone 1GM/50ML D5W 50 ML IV SCH (08:12)
[2022-08-18] MEDS: FUROSEMIDE 20 MG/2 ML VIAL IV SCH (08:13)
[2022-08-18] MEDS: levoFLOXacin 500MG 100 ML IV SCH (08:13)
[2022-08-18 09:00] VITALS: BP 121/73
[2022-08-18 10:33] VITALS: BP 121/73
[2022-08-18] MEDS ORDERED: LEVO-28 PO (10:50)
[2022-08-18 13:00] VITALS: BP 138/78
== END 2022-08-18 12:45 | disposition home or self-care (01) | DRG 190 ==
LOC: ER 10:50 → TELE 14:45 → TELE-CENTR 08-15 22:00
PROVIDERS: ADMIT Internal Medicine; ATTEND Internal Medicine
DX: J44.1 Chronic obstructive pulmonary disease with (acute) exacerbation (principal); J18.9 Pneumonia, unspecified organism; I50.32 Chronic diastolic (congestive) heart failure; J44.0 Chronic obstructive pulmonary disease with (acute) lower respiratory infection; I25.10 Atherosclerotic heart disease of native coronary artery without angina pectoris; I48.91 Unspecified atrial fibrillation; F17.210 Nicotine dependence, cigarettes, uncomplicated; R06.03 Acute respiratory distress; E11.51 Type 2 diabetes mellitus with diabetic peripheral angiopathy without gangrene; I49.5 Sick sinus syndrome; Z20.822 Contact with and (suspected) exposure to COVID-19; I11.0 Hypertensive heart disease with heart failure; Z95.1 Presence of aortocoronary bypass graft
CPT/HCPCS: 36415; 71045; 80053; 81001; 82962; 83605; 83735; 83880; 84484; 85007; 85025; 85027; 87040; 87081; 87426; 93005; 94640; 96365; 96375; G0378; J0696; J1815; J1956

== ENCOUNTER → 2024-02-26 | Outpatient (CLI) | payer BC ==
[~2024-02-26] VITALS: Ht 177.8 cm; Wt 111.1 kg
[~2024-02-26] MED LIST changes: +AMIO200T13 PO; +AMLO1TAB22 PO; +APIX5TAB PO; -ATO40T PO; +ATOR-47 PO; +ATOR-507 PO; +EMPA1TAB PO; +FUR20T PO; -HYDR-4833 GT; +LEVO500T91 PO; -LISI20TA28 PO; +LISI20TA56 PO; +METF-372 PO; +RIVA10TA2 PO; -[UNRECOGNIZED DRUG - CODE] PO
[2024-02-26] MEDS: ADENOSINE 93 MG in GIVE UN-DILUTED 0 ML IV STA (11:46)
== END | disposition home or self-care (01) ==
LOC: XY 09:11
PROVIDERS: ATTEND Specialist
DX: R07.9 Chest pain, unspecified (principal); R06.02 Shortness of breath; I48.91 Unspecified atrial fibrillation; I25.10 Atherosclerotic heart disease of native coronary artery without angina pectoris; I50.9 Heart failure, unspecified; Z95.5 Presence of coronary angioplasty implant and graft
CPT/HCPCS: 78452; 93017; A9500; J0153